=== PATIENT | female | born 1965 | race Caucasian/White ===

== ENCOUNTER 2021-11-22 17:52 | Inpatient (IN) | payer BC, SELFPAY ==
[2021-11-22 18:44] LABS: #Lymphocytes 1.7 thou/uL (1.20-3.40); #Monocytes 0.6 thou/uL (0.11-0.59); #Neutrophils 4.6 thou/uL (1.40-6.50); %Basophils 0.6 % (0.0-1.0); %Eosinophils 0.4 % (0.0-10.0); %Lymphocytes 23.8 % (21.0-51.0); %Monocytes 8.6 % (0.0-10.0); %Neutrophils 66.6 % (42.0-75.0); Hemoglobin 13.4 g/dL (12.0-16.0); Mean Corpuscular HGB CONC 33.3 g/dL (32.0-36.0); Mean Corpuscular Hemoglobin 27.6 pg (27.0-31.0); Mean Corpuscular Volume 82.8 fL (78.0-98.0); Platelet Count 263 thou/uL (130-400); RBC Distribution Width 12.5 % (11.5-14.5); Red Blood Cell (RBC) Count 4.87 mill/uL (4.20-5.40); White Blood Cell (WBC) Count 6.9 thou/uL (4.8-10.8)
[2021-11-22] MEDS ORDERED: Aspirin Chewable 81 MG TAB ONE (19:03)
[2021-11-22 19:04] LABS: ALT (SGPT) 32 U/L (8-55); AST (SGOT) 60 U/L (5-34); Albumin 3.7 g/dL (3.5-5.0); Alkaline Phosphatase 58 U/L (40-110); Anion Gap 15 mmol/L (10-20); BUN (Urea Nitrogen) 14 mg/dL (9.8-20.1); Bilirubin, Total 0.4 mg/dL (0.2-1.2); CK (CPK) 99 U/L (29-168); Calc. Creatinine Clearance 0 mL/min (70-130); Calcium 9.9 mg/dL (7.8-10.44); Carbon Dioxide 24 mmol/L (22-29); Chloride 104 mmol/L (98-107); Glucose 114 mg/dL (70-105); Lipase 36 U/L (8-78); Potassium 3.6 mmol/L (3.5-5.1); Protein, Total 6.7 g/dL (6.0-8.3); Sodium 139 mmol/L (136-145)
[2021-11-22] MEDS ORDERED: Furosemide 40 MG/4 ML VIAL ONE (19:04)
[2021-11-22] MEDS ORDERED: Nitroglycerin 2% Ointment 1 INCH/1 GM Packet ONE ×2 (19:04→19:07)
[2021-11-22] MEDS ORDERED: Ondansetron PF 4 MG/2 ML Vial IVP PRN (20:30)
[2021-11-22] MEDS ORDERED: Ondansetron ODT 4 MG TAB SL PRN (20:30)
[2021-11-22] MEDS ORDERED: Acetaminophen 325 MG TAB PO PRN (20:30)
[2021-11-22 21:21] LABS: Troponin I 0.014 ng/mL (< 0.028)
[2021-11-22] MEDS ORDERED: Guaifenesin DM 100-10/5 ML UDCUP PO PRN (22:22)
[2021-11-22] MEDS ORDERED: Albuterol Sulfate 2.5 mg/3 ml Neb NEB PRN (22:24)
[2021-11-22] MEDS ORDERED: Enoxaparin Sodium 40 MG/0.4 ML SYRINGE SC SCH (23:00)
[2021-11-22] MEDS ORDERED: Furosemide 40 MG TAB PO SCH (23:00)
[2021-11-22] MEDS ORDERED: hydrALAZINE 20 MG/ML VIAL SLOW IVP PRN (23:52)
[2021-11-23] MEDS ORDERED: Enoxaparin Sodium 40 MG/0.4 ML SYRINGE ONE ×2 (00:40→22:09)
[2021-11-23 00:41] LABS: Hemoglobin A1c 6.5 % (4.0-6.0)
[2021-11-23 02:03] LABS: Troponin I 0.021 ng/mL (< 0.028)
[2021-11-23 03:45] LABS: SARS-CoV-2 NAA Rapid Test DETECTED (NotDetected)
[2021-11-23 05:39] LABS: Anion Gap 15 mmol/L (10-20); BUN (Urea Nitrogen) 13 mg/dL (9.8-20.1); Calc. Creatinine Clearance 0 mL/min (70-130); Carbon Dioxide 27 mmol/L (22-29); Chloride 103 mmol/L (98-107); Potassium 3.6 mmol/L (3.5-5.1); Sodium 141 mmol/L (136-145)
[2021-11-23 05:40] LABS: ALT (SGPT) 28 U/L (8-55); AST (SGOT) 53 U/L (5-34); Albumin 3.6 g/dL (3.5-5.0); Alkaline Phosphatase 54 U/L (40-110); Bilirubin, Total 0.5 mg/dL (0.2-1.2); Calcium 9.5 mg/dL (7.8-10.44); Cardiac Risk 4.1 (Less than 4.5); Cholesterol 163 mg/dl (< 200 Desired); Globulin 2.6 g/dL (2.4-3.5); Glucose 139 mg/dL (70-105); HDL Cholesterol 40 mg/dL (>60 Neg Risk); LDL Cholesterol, Calculated 98 mg/dL; Protein, Total 6.2 g/dL (6.0-8.3); Triglycerides 125 mg/dL (Less than 150)
[2021-11-23] MEDS ORDERED: Furosemide 40 MG/4 ML VIAL SLOW IVP SCH (06:00)
[2021-11-23] MEDS: Furosemide 40 MG TAB PO SCH (08:45)
[2021-11-23] MEDS ORDERED: Carvedilol 6.25 MG TAB PO SCH ×2 (09:00→09:06)
[2021-11-23] MEDS: Benzonatate 100 MG CAP PO PRN (10:37)
[2021-11-23] MEDS: Losartan 25 MG TAB PO SCH (10:37)
[2021-11-23] MEDS ORDERED: Benzonatate 100 MG CAP ONE (10:40)
[2021-11-23] MEDS ORDERED: Acetaminophen 500 MG TAB ONE (10:40)
[2021-11-23] MEDS ORDERED: Carvedilol 25 MG TAB PO SCH (17:00)
[2021-11-23] MEDS ORDERED: Nitroglycerin 2% Ointment 1 INCH/1 GM Packet ONE (17:38)
[2021-11-23] MEDS: Enoxaparin Sodium 40 MG/0.4 ML SYRINGE SC SCH (22:47)
[2021-11-23] MEDS: Atorvastatin Calcium 20 MG TAB PO SCH (22:47)
[2021-11-24] MEDS ORDERED: Acetaminophen 325 MG TAB PO PRN (03:00)
[2021-11-24] MEDS: Benzonatate 100 MG CAP PO PRN ×2 (03:54→19:59)
[2021-11-24 05:46] LABS: Creatinine, Urine 27.19 mg/dL (47-110); Microalbumin Urine Less than 1.0 mg/dL (0.5-50.0)
[2021-11-24] MEDS: Furosemide 40 MG TAB PO SCH (08:27)
[2021-11-24] MEDS: Carvedilol 6.25 MG TAB PO SCH ×2 (08:41→17:43)
[2021-11-24] MEDS: Losartan 25 MG TAB PO SCH (08:41)
[2021-11-24] MEDS ORDERED: Hydrochlorothiazide 25 MG TAB PO SCH (10:15)
[2021-11-24] MEDS ORDERED: hydrOXYzine 25 MG TAB ONE (11:43)
[2021-11-24] MEDS ORDERED: hydrALAZINE 25 MG TAB ONE (11:46)
[2021-11-24] MEDS: hydrOXYzine 25 MG TAB PO SCH ×3 (11:58→19:59)
[2021-11-24] MEDS ORDERED: hydrALAZINE 10 MG TAB PO SCH (13:15)
[2021-11-24] MEDS: hydrALAZINE 25 MG TAB ONE ×2 (13:21→13:28)
[2021-11-24 13:22] VITALS: BMI 33.8
[2021-11-24 13:39] LABS: Anion Gap 15 mmol/L (10-20); BUN (Urea Nitrogen) 9 mg/dL (9.8-20.1); Calc. Creatinine Clearance 122 mL/min (70-130); Calcium 9.5 mg/dL (7.8-10.44); Carbon Dioxide 29 mmol/L (22-29); Chloride 102 mmol/L (98-107); Glucose 100 mg/dL (70-105); Magnesium 1.9 mg/dL (1.6-2.6); Phosphorus 3.3 mg/dL (2.3-4.7); Potassium 3.9 mmol/L (3.5-5.1); Sodium 142 mmol/L (136-145)
[2021-11-24] MEDS: hydrALAZINE 10 MG TAB PO SCH (17:43)
[2021-11-24] MEDS ORDERED: Melatonin 3 MG TAB PO PRN (19:18)
[2021-11-24] MEDS: Enoxaparin Sodium 40 MG/0.4 ML SYRINGE SC SCH (19:59)
[2021-11-24] MEDS: Atorvastatin Calcium 20 MG TAB PO SCH (19:59)
[2021-11-25] MEDS: hydrALAZINE 10 MG TAB PO SCH ×2 (00:06→05:26)
[2021-11-25] MEDS: Carvedilol 6.25 MG TAB PO SCH ×2 (08:37→17:53)
[2021-11-25] MEDS: hydrOXYzine 25 MG TAB PO SCH ×3 (08:37→20:18)
[2021-11-25] MEDS: Hydrochlorothiazide 25 MG TAB PO SCH (08:37)
[2021-11-25] MEDS: Furosemide 40 MG TAB PO SCH (08:37)
[2021-11-25] MEDS ORDERED: FLU VACC QS2021-22(6MOS UP)/PF 60 MCG/0.5 ML SYRINGE IM ONE (09:00)
[2021-11-25] MEDS ORDERED: hydrALAZINE 10 MG TAB PO SCH (12:00)
[2021-11-25] MEDS: hydrALAZINE 25 MG TAB PO SCH ×2 (12:56→18:34)
[2021-11-25] MEDS ORDERED: Spironolactone 25 MG TAB PO SCH ×2 (14:00)
[2021-11-25] MEDS: Atorvastatin Calcium 20 MG TAB PO SCH (20:18)
[2021-11-25] MEDS: Enoxaparin Sodium 40 MG/0.4 ML SYRINGE SC SCH (20:18)
[2021-11-26] MEDS: hydrALAZINE 25 MG TAB PO SCH ×3 (06:08→14:05)
[2021-11-26] MEDS ORDERED: Spironolactone 25 MG TAB PO SCH (08:00)
[2021-11-26] MEDS: Furosemide 40 MG TAB PO SCH (09:48)
[2021-11-26] MEDS: Carvedilol 6.25 MG TAB PO SCH (09:48)
[2021-11-26] MEDS: Hydrochlorothiazide 25 MG TAB PO SCH (09:48)
[2021-11-26] MEDS: hydrOXYzine 25 MG TAB PO SCH (09:49)
[2021-11-26 14:10] VITALS: BP 120/82; TEMP 98.4
== END 2021-11-26 14:30 | disposition home or self-care (01) | DRG 177 ==
LOC: ERS 17:52 → ERHOLD 20:00 → 2SW 11-23 23:28
PROVIDERS: ADMIT Family Medicine; ATTEND Family Medicine
PROC: 8E0ZXY6 Isolation (ICD-10-PCS; principal; 2021-11-22)
DX: U07.1 COVID-19 (principal); J12.82 Pneumonia due to coronavirus disease 2019; I42.9 Cardiomyopathy, unspecified; E66.9 Obesity, unspecified; E11.9 Type 2 diabetes mellitus without complications; I44.7 Left bundle-branch block, unspecified; I11.0 Hypertensive heart disease with heart failure; I50.9 Heart failure, unspecified; R00.1 Bradycardia, unspecified; G47.30 Sleep apnea, unspecified; I16.0 Hypertensive urgency; F41.9 Anxiety disorder, unspecified; F17.210 Nicotine dependence, cigarettes, uncomplicated; J45.909 Unspecified asthma, uncomplicated; Z79.899 Other long term (current) drug therapy; Z86.16 Personal history of COVID-19; Z90.710 Acquired absence of both cervix and uterus; Z88.8 Allergy status to other drugs, medicaments and biological substances; Z91.041 Radiographic dye allergy status; Z83.3 Family history of diabetes mellitus; Z82.49 Family history of ischemic heart disease and other diseases of the circulatory system; Z68.32 Body mass index [BMI] 32.0-32.9, adult
CPT/HCPCS: 36415; 71045; 71275; 80048; 80053; 80061; 82043; 82550; 83036; 83690; 83735; 83880; 84100; 84443; 84484; 85025; 90471; 90686; 93005; 93010; 93306; 93798; 96374; G0008; J1650; J1940; U0002

== ENCOUNTER 2021-12-13 07:49 | Outpatient (CLI) | payer BC | END 2021-12-13 07:50 | disposition home or self-care (01) | LOC: BICULT 07:49 | PROVIDERS: ATTEND Family Medicine | DX: R10.84 Generalized abdominal pain (principal) | CPT/HCPCS: 76700 ==

== ENCOUNTER 2022-01-09 08:20 | Outpatient (CLI) | payer BC | END 2022-01-09 08:21 | disposition home or self-care (01) | LOC: TBSIIMAG 08:20 | PROVIDERS: ATTEND Specialist | DX: M47.22 Other spondylosis with radiculopathy, cervical region (principal) | CPT/HCPCS: 72141 ==